=== PATIENT | female | born 1995 | race Caucasian/White ===

== ENCOUNTER 2019-05-21 09:29 | Emergency (ER) | payer OTHER, SELFPAY ==
[~2019-05-21] VITALS: Ht 172.7 cm; Wt 84.1 kg
[2019-05-21] MEDS ORDERED: DICL75TA PO (09:36)
[2019-05-21] MEDS ORDERED: CELE1CAP7 PO (09:36)
[2019-05-21] MEDS ORDERED: ORPH100T PO (09:36)
[2019-05-21] MEDS ORDERED: NABU-119 PO (09:36)
[2019-05-21] MEDS ORDERED: IBUP-1114 PO (09:36)
[2019-05-21] MEDS ORDERED: DEPO150I12 IM (09:38)
[2019-05-21] MEDS ORDERED: KETOROLAC 60 MG/2 ML VIAL (J1885) IM ONE (10:00)
[2019-05-21] MEDS ORDERED: ACETAMINOPHEN TAB 650MG DOSE (2X325MG) PO ONE (11:00)
[2019-05-21] MEDS ORDERED: ANEXSIA, NORCO 7.5MG/325MG TABLET(HYDROCODONE/APAP) PO ONE (11:00)
[2019-05-21] MEDS ORDERED: NORC1TAB7 PO (11:28)
[2019-05-21] MEDS ORDERED: METH4TAB8 PO (11:28)
[2019-05-21 11:41] VITALS: BP 130/72
--- NOTE | 2019-05-21 11:47 | REP ---
REASON: History of disc herniation at L5-S1. There are six lumbar appearing vertebral bodies. The entire spine was not imaged. The disc spaces are symmetric and well-maintained throughout. Vertebral body height and alignment is within normal limits. The pedicles are intact bilaterally. There is no spondylolysis or spondylolisthesis. IMPRESSION: Findings as described above. There is no plain radiographic evidence of acute disease. Electronically Signed by Teo Palma DO 05/21/2019 02:13 P
== END 2019-05-21 11:40 | disposition home or self-care (01) ==
LOC: M ED 09:29
DX: M54.5 Low back pain (principal); G89.29 Other chronic pain; F17.210 Nicotine dependence, cigarettes, uncomplicated
CPT/HCPCS: 72110; 96372; 99283; J1885